=== PATIENT | female | born 1955 | race African-American/Black ===

== ENCOUNTER 2017-05-24 22:53 | Emergency (ER) | payer OTHER ==
[~2017-05-24] VITALS: Ht 162.6 cm; Wt 90.7 kg
--- NOTE | ~2017-05-24 | EKG ---
[place] [address] [address] [facility] [place] [address] ELECTROCARDIOGRAM REPORT Name: JILLIAN MAY Room #: [facility] [id number] Admission: 05/24/17 Attend Phys: Discharge: 05/25/17 Date of : 59 Report #: [id number] THIS REPORT FOR: //name// [facility] ED Test Date: 2017-05-24 Test Time: 23:02:20 Pat Name: JILLIAN MAY Department: Room: Gender: F [employer] Developer: TRANG : 1955 Requested By: Alverto Garcia Order Number: [id number] MD: Johnson Phelan Measurements Intervals [place] Rate: 79 P: 49 UT: 191 QRS: -17 QRSD: 108 T: 28 QT: 403 QTc: 463 Interpretive Statements Sinus rhythm Abnormal R-wave progression, early transition Left ventricular hypertrophy Baseline wander in lead(s) V5 No previous ECG available for comparison Electronically Signed On 05-26-2017 12:55:27 CDT by Johnson Phelan [email or web address] <ELECTRONICALLY SIGNED> By: Johnson Phelan MD, [facility] 05/26/17 1255 01 01 Johnson Phelan MD, [facility] /EPI
[2017-05-24] MEDS ORDERED: ACID REDUCER20 MG (23:00)
[2017-05-24] MEDS ORDERED: HYDROCHLOROTHIA25 M2 PO (23:00)
[2017-05-24] MEDS ORDERED: PRINIVIL10 MG PO (23:00)
[2017-05-24] MEDS ORDERED: VITAMIN D1000 UNI1 PO (23:01)
[2017-05-24] MEDS ORDERED: KLOR-CON 10 ER10 MEQ PO (23:03)
[2017-05-24 23:43] LABS: ABSOLUTE NEUTROPHILS 4.2 thou/uL (1.4-8.2); BASOPHILS 1.5 % (0.0-2.0); EOSINOPHILS 2.2 % (0.0-3.0); HEMATOCRIT 40.8 % (37.0-47.0); LYMPHOCYTES 40.5 % (24.0-44.0); MCH 30.7 pg (26.0-34.0); MCHC 34.2 g/dL (28.0-37.0); MCV 89.7 fL (80.0-100.0); MONOCYTES 4.8 % (1.0-8.0); PLATELET COUNT 216 thou/uL (150-400); RBC 4.55 mil/uL (4.20-5.00); RDW 13.4 % (10.5-14.5); WBC 8.3 thou/uL (4.0-11.0)
[2017-05-24 23:45] LABS: ANION GAP 13 mmol/L (7-16); BUN 20 mg/dL (7-18); CALCIUM 9.3 mg/dL (8.5-10.1); CHLORIDE 103 mmol/L (98-107); CO2 27 mmol/L (21-32); CREATININE 1.4 mg/dL (0.6-1.0); GLUCOSE 142 mg/dL (74-106); SODIUM 143 mmol/L (136-145)
[2017-05-24 23:47] LABS: MANUAL DIFF NO
[2017-05-24 23:53] LABS: ALBUMIN 3.8 g/dL (3.4-5.0); ALKALINE PHOSPHATASE 110 U/L (46-116); MAGNESIUM 1.4 mg/dL (1.8-2.4); SGOT 18 U/L (15-37); SGPT 27 U/L (30-65); TOTAL BILIRUBIN 0.3 mg/dL (<0.1-1.0); TOTAL PROTEIN 7.9 g/dL (6.4-8.2); TROPONIN-I < 0.04 ng/mL (<0.04-0.07)
[2017-05-24 23:59] LABS: APTT 22.6 Seconds (24.5-32.8); PROTIME 9.6 Seconds (9.3-11.4)
[2017-05-25] MEDS ORDERED: NORCO 5-325 TA1 EACH PO (01:22)
[2017-05-25] MEDS ORDERED: ZOFRAN ODT4 MG DISSOLVE (01:22)
[2017-05-25 01:34] LABS: URINE BILIRUBIN NEGATIVE (Negative); URINE BLOOD NEGATIVE (Negative); URINE COLOR YELLOW; URINE GLUCOSE-RANDOM* NEGATIVE (Negative); URINE KETONES NEGATIVE (Negative); URINE LEUKOCYTES-REFLEX NEGATIVE (Negative); URINE PROTEIN (DIPSTICK) NEGATIVE (Negative); URINE SPECIFIC GRAVITY <= 1.005 (1.003-1.035)
[2017-05-25 01:50] VITALS: BP 148/99
[2017-05-25] MEDS ORDERED: MAG-OXIDE400 MG PO (01:52)
== END 2017-05-25 02:04 | disposition home or self-care (01) ==
LOC: ER 22:53
PROVIDERS: Emergency Medicine
DX: R10.11 Right upper quadrant pain (principal); E87.6 Hypokalemia; E83.42 Hypomagnesemia; Z98.890 Other specified postprocedural states

== ENCOUNTER 2018-09-05 22:26 | Emergency (ER) | payer OTHER ==
[~2018-09-05] VITALS: Ht 167.6 cm; Wt 95.3 kg
[~2018-09-05 22:26] MED LIST: ACID REDUCER20 MG; HYDROCHLOROTHIA25 M2 PO; KLOR-CON 10 ER10 MEQ PO; MAG-OXIDE400 MG PO; NORCO 5-325 TA1 EACH PO; PRINIVIL10 MG PO; VITAMIN D1000 UNI1 PO; ZOFRAN ODT4 MG DISSOLVE
[2018-09-05] MEDS ORDERED: MOBIC15 MG PO (22:54)
[2018-09-05] MEDS ORDERED: NORCO 5-325 TA1 EACH PO (22:54)
[2018-09-05 23:27] VITALS: BP 126/79
== END 2018-09-05 23:25 | disposition home or self-care (01) ==
LOC: ER 22:26
DX: M25.572 Pain in left ankle and joints of left foot (principal)

== ENCOUNTER 2021-09-04 23:45 | Emergency (ER) | payer OTHER ==
[~2021-09-04] VITALS: Ht 162.6 cm; Wt 99.8 kg
[~2021-09-04 23:45] MED LIST changes: +MOBIC15 MG PO
[2021-09-04 23:48] VITALS: BP 168/59
[2021-09-04] MEDS ORDERED: DESYREL150 MG PO (23:52)
[2021-09-05] MEDS ORDERED: TESSALON PERLE100 MG PO (01:38)
[2021-09-05] MEDS ORDERED: AZITHROMYCIN 2250 MG PO (01:38)
== END 2021-09-05 01:56 | disposition home or self-care (01) ==
LOC: ER 23:45
PROVIDERS: Emergency Medicine
DX: J20.9 Acute bronchitis, unspecified (principal); Z20.822 Contact with and (suspected) exposure to COVID-19; Z79.891 Long term (current) use of opiate analgesic; Z79.899 Other long term (current) drug therapy